=== PATIENT | female | born 1950 | race Hispanic/Latino ===

== ENCOUNTER 2022-05-03 17:35 | Inpatient (IN) | payer MEDICARE, SELFPAY ==
[2022-05-03 18:12] LABS: #Lymphocytes 1.2 thou/uL (1.20-3.40); #Monocytes 0.1 thou/uL (0.11-0.59); #Neutrophils 5.6 thou/uL (1.40-6.50); %Basophils 0.3 % (0.0-1.0); %Eosinophils 0.3 % (0.0-10.0); %Lymphocytes 17.6 % (21.0-51.0); %Monocytes 2.1 % (0.0-10.0); %Neutrophils 79.8 % (42.0-75.0); Hemoglobin 10.2 g/dL (12.0-16.0); Mean Corpuscular Hemoglobin 34.2 pg (27.0-31.0); Mean Platelet Volume 7.5 fL (7.4-10.4); Platelet Count 245 10x3/uL (130-400); RBC Distribution Width 11.7 % (11.5-14.5); Red Blood Cell (RBC) Count 2.97 mill/uL (4.20-5.40)
[2022-05-03 18:31] LABS: ALT (SGPT) 94 U/L (8-55); AST (SGOT) 105 U/L (5-34); Albumin 3.9 g/dL (3.4-4.8); Alkaline Phosphatase 82 U/L (40-110); Anion Gap 19 mmol/L (10-20); BUN (Urea Nitrogen) 86 mg/dL (9.8-20.1); Bilirubin, Total 0.3 mg/dL (0.2-1.2); Calc. Creatinine Clearance 0 mL/min (70-130); Calcium 8.8 mg/dL (7.8-10.44); Carbon Dioxide 15 mmol/L (23-31); Chloride 99 mmol/L (98-107); Estimated GFR 9; Globulin 2.9 g/dL (2.4-3.5); Glucose 256 mg/dL (80-115); Protein, Total 6.8 g/dL (5.8-8.1); Sodium 126 mmol/L (136-145)
[2022-05-03 18:36] LABS: Potassium 7.1 mmol/L (3.5-5.1)
[2022-05-03] MEDS ORDERED: Calcium Chloride 1 GM/10 ML Abboject SYRINGE ONE ×2 (20:36→20:38)
[2022-05-03] MEDS ORDERED: Insulin Regular 300 UNITS/3 ML VIAL ONE (20:36)
[2022-05-03] MEDS ORDERED: Dextrose 50% Abboject 50 ML SYRINGE ONE (20:36)
[2022-05-03] MEDS ORDERED: Sodium Bicarb 50 MEQ/50 ML VIAL ONE ×2 (20:36→20:37)
[2022-05-03] MEDS ORDERED: Ondansetron PF 4 MG/2 ML Vial IVP PRN (21:08)
[2022-05-03] MEDS ORDERED: Dextrose 50% Abboject 50 ML SYRINGE SLOW IVP PRN (21:10)
[2022-05-03] MEDS ORDERED: Dextrose 5% in Water 1,000 ML IV PRN (21:10)
[2022-05-03 21:59] LABS: Magnesium 2.1 mg/dL (1.6-2.6)
[2022-05-03] MEDS ORDERED: Sodium Bicarbonate 150 MEQ in Dextrose 5% in Water 1,000 ML IV SCH (22:00)
[2022-05-03 22:43] LABS: Bacteria/HPF 4+ HPF (None Seen); Bilirubin Negative (Negative); Blood, Urine Trace (Negative); Clarity Turbid (Clear); Glucose, Urine (Dipstick) 30 mg/dL (Negative); Ketone, Urine Negative (Negative); Leukocyte 500 Leu/uL (Negative); Nitrite Negative (Negative); Protein, Urine (Dipstick) 100 mg/dL (Neg-Trace); RBC/HPF 0-3 HPF (0-3); Renal Epithelial 0-3 HPF (None Seen); Specific Gravity, Urine 1.019 (1.002-1.036); WBC/HPF Greater than 50 HPF (0-3)
[2022-05-03 23:14] LABS: SARS-CoV-2 NAA Rapid Test Not Detected (NotDetected)
[2022-05-04 00:22] LABS: HBSAB Concentration Less than 8.00 mIU/mL; HBSAg Index 0.25 S/CO (0-0.99); Hep B Core Total Ab Non-Reactive (NonReactive); Hep B Core Total Index 0.06 S/CO (0-0.79); Hep B Surf AB Non-Reactive (NonReactive); Hep B Surf Ag Non-Reactive S/CO (NonReactive); Hep C IgG Ab Non-Reactive (NonReactive); Hep C Index 0.12 S/CO (0-0.79)
[2022-05-04 04:18] LABS: #Lymphocytes 2.2 thou/uL (1.20-3.40); #Monocytes 0.4 thou/uL (0.11-0.59); #Neutrophils 4.3 thou/uL (1.40-6.50); %Basophils 0.3 % (0.0-1.0); %Eosinophils 0.6 % (0.0-10.0); %Lymphocytes 31.6 % (21.0-51.0); %Monocytes 5.5 % (0.0-10.0); Hemoglobin 10.4 g/dL (12.0-16.0); Mean Corpuscular HGB CONC 35.1 g/dL (32.0-36.0); Mean Corpuscular Volume 99.9 fl (78.0-98.0); Mean Platelet Volume 7.9 fL (7.4-10.4); Platelet Count 237 10x3/uL (130-400); RBC Distribution Width 11.8 % (11.5-14.5); Red Blood Cell (RBC) Count 2.98 mill/uL (4.20-5.40)
[2022-05-04 04:23] LABS: Hemoglobin A1c 6.6 % (4.0-6.0)
[2022-05-04 04:39] LABS: Anion Gap 15 mmol/L (10-20); BUN (Urea Nitrogen) 39 mg/dL (9.8-20.1); Calc. Creatinine Clearance 0 mL/min (70-130); Calcium 9.1 mg/dL (7.8-10.44); Carbon Dioxide 23 mmol/L (23-31); Chloride 98 mmol/L (98-107); Estimated GFR 18; Glucose 129 mg/dL (80-115); Magnesium 2.2 mg/dL (1.6-2.6); Potassium 4.1 mmol/L (3.5-5.1); Sodium 132 mmol/L (136-145)
[2022-05-04 06:59] VITALS: BMI 32.5
[2022-05-04] MEDS ORDERED: cefTRIAXone\\ROCEPHIN 1 GM in Sodium Chloride 0.9% 100 ML IVPB SCH (08:00)
[2022-05-04 09:38] LABS: Bacteria/HPF 4+ HPF (None Seen); Bilirubin Negative (Negative); Blood, Urine Trace (Negative); CAUTI Indications for Culture Alt mental st,lethar; Clarity Turbid (Clear); Glucose, Urine (Dipstick) Normal (Negative); Ketone, Urine Negative (Negative); Leukocyte 500 Leu/uL (Negative); Nitrite Negative (Negative); Protein, Urine (Dipstick) 30 mg/dL (Neg-Trace); Specific Gravity, Urine 1.006 (1.002-1.036); Squamous Epithelial 0-3 HPF (0-3); Urobilinogen Normal mg/dL (Less than 2); WBC/HPF Greater than 50 HPF (0-3); pH, Urine 7.5 (5.0-9.0)
[2022-05-04 09:43] LABS: Urine Culture Reflex Yes Yes
[2022-05-04] MEDS: Heparin 5,000 UNITS/ML VIAL SC SCH ×2 (09:50→21:58)
[2022-05-04 10:00] LABS: Creatinine, Urine 36.31 mg/dL (47-110)
[2022-05-04] MEDS: HumaLOG 300 UNITS/3 ML VIAL SC PRN ×2 (11:36→22:27)
[2022-05-04] MEDS: cefTRIAXone\\ROCEPHIN 1 GM in Sodium Chloride 0.9% 100 ML IVPB SCH (11:37)
[2022-05-04 14:51] LABS: ALT (SGPT) 76 U/L (8-55); AST (SGOT) 57 U/L (5-34); Albumin 3.6 g/dL (3.4-4.8); Alkaline Phosphatase 76 U/L (40-110); Bilirubin, Direct 0.2 mg/dL (0.1-0.3); Bilirubin, Total 0.4 mg/dL (0.2-1.2); Protein, Total 6.6 g/dL (5.8-8.1)
[2022-05-04] MEDS ORDERED: Labetalol HCl 100 MG TAB PO SCH ×2 (15:00→21:00)
[2022-05-04] MEDS ORDERED: Empagliflozin 10 MG TAB PO SCH (16:15)
[2022-05-04] MEDS ORDERED: Sodium Bicarbonate Tab 325 MG TAB PO SCH (16:15)
[2022-05-04] MEDS: Acetaminophen 325 MG TAB PO PRN (19:29)
[2022-05-04] MEDS: Sodium Bicarbonate Tab 325 MG TAB PO SCH (21:58)
[2022-05-05 05:33] LABS: #Eosinphils 0.2 thou/uL (0.0-0.7); #Lymphocytes 2.7 thou/uL (1.20-3.40); #Monocytes 0.4 thou/uL (0.11-0.59); #Neutrophils 2.4 thou/uL (1.40-6.50); %Basophils 0.6 % (0.0-1.0); %Lymphocytes 47.2 % (21.0-51.0); %Monocytes 7.4 % (0.0-10.0); %Neutrophils 41.8 % (42.0-75.0); Hemoglobin 9.4 g/dL (12.0-16.0); Mean Corpuscular HGB CONC 34.3 g/dL (32.0-36.0); Mean Platelet Volume 7.4 fL (7.4-10.4); Platelet Count 193 10x3/uL (130-400); RBC Distribution Width 12.1 % (11.5-14.5); Red Blood Cell (RBC) Count 2.67 mill/uL (4.20-5.40); White Blood Cell (WBC) Count 5.7 10x3/uL (4.8-10.8)
[2022-05-05 05:50] LABS: Phosphorus 5.3 mg/dL (2.3-4.7)
[2022-05-05 06:04] LABS: ALT (SGPT) 44 U/L (8-55); AST (SGOT) 21 U/L (5-34); Albumin 3.1 g/dL (3.4-4.8); Alkaline Phosphatase 64 U/L (40-110); Anion Gap 14 mmol/L (10-20); BUN (Urea Nitrogen) 50 mg/dL (9.8-20.1); Bilirubin, Total 0.2 mg/dL (0.2-1.2); Calc. Creatinine Clearance 18 mL/min (70-130); Calcium 8.3 mg/dL (7.8-10.44); Carbon Dioxide 28 mmol/L (23-31); Chloride 99 mmol/L (98-107); Estimated GFR 11; Globulin 2.7 g/dL (2.4-3.5); Glucose 136 mg/dL (80-115); Magnesium 1.9 mg/dL (1.6-2.6); Potassium 4.6 mmol/L (3.5-5.1); Protein, Total 5.8 g/dL (5.8-8.1); Sodium 136 mmol/L (136-145)
[2022-05-05] MEDS ORDERED: Ergocalciferol 1.25 MG(50,000 UNITS) CAP PO SCH (09:00)
[2022-05-05] MEDS: Sodium Bicarbonate Tab 325 MG TAB PO SCH ×3 (09:31→22:10)
[2022-05-05] MEDS: Calcitriol 0.25 MCG CAP PO SCH (09:31)
[2022-05-05] MEDS: Heparin 5,000 UNITS/ML VIAL SC SCH ×2 (09:31→22:10)
[2022-05-05] MEDS: cefTRIAXone\\ROCEPHIN 1 GM in Sodium Chloride 0.9% 100 ML IVPB SCH (13:30)
[2022-05-05] MEDS: Carvedilol 3.125 MG TAB PO SCH (15:55)
[2022-05-05] MEDS: HumaLOG 300 UNITS/3 ML VIAL SC PRN (22:11)
[2022-05-06 05:28] LABS: #Basophils 0.1 thou/uL (0.0-0.2); #Eosinphils 0.1 thou/uL (0.0-0.7); #Lymphocytes 1.9 thou/uL (1.20-3.40); #Monocytes 0.6 thou/uL (0.11-0.59); #Neutrophils 5.7 thou/uL (1.40-6.50); %Basophils 0.7 % (0.0-1.0); %Eosinophils 1.7 % (0.0-10.0); %Lymphocytes 22.2 % (21.0-51.0); %Neutrophils 68.4 % (42.0-75.0); Hemoglobin 10.2 g/dL (12.0-16.0); Mean Corpuscular HGB CONC 33.1 g/dL (32.0-36.0); Mean Corpuscular Hemoglobin 34.1 pg (27.0-31.0); Mean Platelet Volume 7.8 fL (7.4-10.4); Platelet Count 215 10x3/uL (130-400); RBC Distribution Width 12.1 % (11.5-14.5); White Blood Cell (WBC) Count 8.3 10x3/uL (4.8-10.8)
[2022-05-06 05:47] LABS: Iron 31 ug/dL (50-170); Iron Binding Capacity, Total 256 mcg/dL (265-497)
[2022-05-06 06:04] LABS: ALT (SGPT) 49 U/L (8-55); AST (SGOT) 33 U/L (5-34); Albumin 3.4 g/dL (3.4-4.8); Alkaline Phosphatase 77 U/L (40-110); Anion Gap 14 mmol/L (10-20); BUN (Urea Nitrogen) 49 mg/dL (9.8-20.1); Bilirubin, Total 0.3 mg/dL (0.2-1.2); Calc. Creatinine Clearance 22 mL/min (70-130); Calcium 8.9 mg/dL (7.8-10.44); Carbon Dioxide 26 mmol/L (23-31); Chloride 106 mmol/L (98-107); Estimated GFR 15; Globulin 2.9 g/dL (2.4-3.5); Glucose 158 mg/dL (80-115); Potassium 4.2 mmol/L (3.5-5.1); Protein, Total 6.3 g/dL (5.8-8.1); Sodium 142 mmol/L (136-145)
[2022-05-06] MEDS: glipiZIDE 5 MG TAB PO SCH (07:26)
[2022-05-06] MEDS ORDERED: Amlodipine 5 MG TAB PO SCH (09:00)
[2022-05-06] MEDS: Calcitriol 0.25 MCG CAP PO SCH (09:33)
[2022-05-06] MEDS: Heparin 5,000 UNITS/ML VIAL SC SCH ×2 (09:33→22:36)
[2022-05-06] MEDS: Sodium Bicarbonate Tab 325 MG TAB PO SCH ×3 (09:33→22:37)
[2022-05-06] MEDS: Carvedilol 3.125 MG TAB PO SCH ×2 (09:33→16:39)
[2022-05-06] MEDS: Iron, Sodium Ferric Gluconate 250 MG in Sodium Chloride 0.9% 250 ML 250 ML IVPB SCH (09:58)
[2022-05-06] MEDS: HumaLOG 300 UNITS/3 ML VIAL SC PRN (11:36)
[2022-05-06] MEDS: cefTRIAXone\\ROCEPHIN 1 GM in Sodium Chloride 0.9% 100 ML IVPB SCH (12:13)
[2022-05-06] MEDS: Ciprofloxacin 500 MG TAB PO SCH (22:50)
[2022-05-07 05:22] LABS: #Basophils 0.1 thou/uL (0.0-0.2); #Eosinphils 0.2 thou/uL (0.0-0.7); #Lymphocytes 2.3 thou/uL (1.20-3.40); #Monocytes 0.5 thou/uL (0.11-0.59); #Neutrophils 4.2 thou/uL (1.40-6.50); %Eosinophils 3.5 % (0.0-10.0); %Lymphocytes 31.4 % (21.0-51.0); %Monocytes 6.3 % (0.0-10.0); %Neutrophils 57.8 % (42.0-75.0); Hemoglobin 9.5 g/dL (12.0-16.0); Mean Corpuscular HGB CONC 34.1 g/dL (32.0-36.0); Mean Platelet Volume 7.8 fL (7.4-10.4); Platelet Count 196 10x3/uL (130-400); RBC Distribution Width 11.9 % (11.5-14.5); White Blood Cell (WBC) Count 7.2 10x3/uL (4.8-10.8)
[2022-05-07 05:51] LABS: ALT (SGPT) 88 U/L (8-55); AST (SGOT) 79 U/L (5-34); Albumin 3.4 g/dL (3.4-4.8); Alkaline Phosphatase 94 U/L (40-110); Anion Gap 15 mmol/L (10-20); BUN (Urea Nitrogen) 48 mg/dL (9.8-20.1); Bilirubin, Total 0.3 mg/dL (0.2-1.2); Calc. Creatinine Clearance 24 mL/min (70-130); Calcium 8.6 mg/dL (7.8-10.44); Carbon Dioxide 21 mmol/L (23-31); Chloride 103 mmol/L (98-107); Estimated GFR 16; Globulin 2.9 g/dL (2.4-3.5); Glucose 121 mg/dL (80-115); Magnesium 1.7 mg/dL (1.6-2.6); Potassium 4.1 mmol/L (3.5-5.1); Protein, Total 6.3 g/dL (5.8-8.1); Sodium 135 mmol/L (136-145)
[2022-05-07] MEDS ORDERED: Amlodipine 5 MG TAB PO SCH (08:36)
[2022-05-07] MEDS ORDERED: Epoetin (ESRD) 10,000 UNITS/ML VIAL SC SCH (08:45)
[2022-05-07] MEDS ORDERED: Magnesium 2 GM/50 ML(in water) 2 GM in Premix Bag 1 BAG IVPB SCH (09:15)
[2022-05-07] MEDS: Amlodipine 10 MG TAB PO SCH (10:42)
[2022-05-07] MEDS: Sodium Bicarbonate Tab 325 MG TAB PO SCH ×3 (10:42→21:23)
[2022-05-07] MEDS: Calcitriol 0.25 MCG CAP PO SCH (10:43)
[2022-05-07] MEDS: Heparin 5,000 UNITS/ML VIAL SC SCH ×2 (10:44→21:22)
[2022-05-07] MEDS: Carvedilol 3.125 MG TAB PO SCH ×2 (10:45→17:07)
[2022-05-07] MEDS: Iron, Sodium Ferric Gluconate 250 MG in Sodium Chloride 0.9% 250 ML 250 ML IVPB SCH (10:45)
[2022-05-07] MEDS: glipiZIDE 5 MG TAB PO SCH (10:54)
[2022-05-07] MEDS ORDERED: EPOETIN ALFA-EPBX (ESRD) 10,000 UNITS/ML VIAL SC SCH (12:00)
[2022-05-07] MEDS: HumaLOG 300 UNITS/3 ML VIAL SC PRN (12:08)
[2022-05-07] MEDS: Acetaminophen 325 MG TAB PO PRN (19:18)
[2022-05-07] MEDS: Ciprofloxacin 500 MG TAB PO SCH (21:22)
[2022-05-08 04:59] LABS: #Eosinphils 0.2 thou/uL (0.0-0.7); #Lymphocytes 2.6 thou/uL (1.20-3.40); #Monocytes 0.5 thou/uL (0.11-0.59); #Neutrophils 3.6 thou/uL (1.40-6.50); %Basophils 0.4 % (0.0-1.0); %Eosinophils 3.3 % (0.0-10.0); %Monocytes 7.6 % (0.0-10.0); %Neutrophils 51.7 % (42.0-75.0); Hemoglobin 9.2 g/dL (12.0-16.0); Mean Corpuscular HGB CONC 33.2 g/dL (32.0-36.0); Mean Corpuscular Hemoglobin 34.1 pg (27.0-31.0); Mean Platelet Volume 8.2 fL (7.4-10.4); Platelet Count 204 10x3/uL (130-400); RBC Distribution Width 11.9 % (11.5-14.5); Red Blood Cell (RBC) Count 2.71 mill/uL (4.20-5.40); White Blood Cell (WBC) Count 6.9 10x3/uL (4.8-10.8)
[2022-05-08 05:04] LABS: ALT (SGPT) 153 U/L (8-55); AST (SGOT) 168 U/L (5-34); Albumin 3.5 g/dL (3.4-4.8); Alkaline Phosphatase 122 U/L (40-110); Anion Gap 16 mmol/L (10-20); BUN (Urea Nitrogen) 50 mg/dL (9.8-20.1); Bilirubin, Total 0.2 mg/dL (0.2-1.2); Calc. Creatinine Clearance 23 mL/min (70-130); Carbon Dioxide 25 mmol/L (23-31); Chloride 103 mmol/L (98-107); Estimated GFR 15; Glucose 161 mg/dL (80-115); Magnesium 2.3 mg/dL (1.6-2.6); Potassium 4.4 mmol/L (3.5-5.1); Protein, Total 6.5 g/dL (5.8-8.1); Sodium 140 mmol/L (136-145)
[2022-05-08] MEDS: Sodium Bicarbonate Tab 325 MG TAB PO SCH ×3 (09:54→20:31)
[2022-05-08] MEDS: Carvedilol 3.125 MG TAB PO SCH ×2 (09:55→17:22)
[2022-05-08] MEDS: Calcitriol 0.25 MCG CAP PO SCH (09:55)
[2022-05-08] MEDS: glipiZIDE 5 MG TAB PO SCH (09:55)
[2022-05-08] MEDS: Heparin 5,000 UNITS/ML VIAL SC SCH ×2 (09:55→20:32)
[2022-05-08] MEDS: Amlodipine 10 MG TAB PO SCH (09:55)
[2022-05-08] MEDS: Iron, Sodium Ferric Gluconate 250 MG in Sodium Chloride 0.9% 250 ML 250 ML IVPB SCH (11:38)
[2022-05-08] MEDS: Ciprofloxacin 500 MG TAB PO SCH (20:31)
[2022-05-08] MEDS: HumaLOG 300 UNITS/3 ML VIAL SC PRN (20:32)
[2022-05-09 05:04] LABS: #Eosinphils 0.4 thou/uL (0.0-0.7); #Lymphocytes 2.6 thou/uL (1.20-3.40); #Monocytes 0.7 thou/uL (0.11-0.59); #Neutrophils 3.9 thou/uL (1.40-6.50); %Basophils 0.5 % (0.0-1.0); %Eosinophils 5.2 % (0.0-10.0); %Lymphocytes 33.6 % (21.0-51.0); %Monocytes 8.8 % (0.0-10.0); %Neutrophils 51.8 % (42.0-75.0); Hemoglobin 8.7 g/dL (12.0-16.0); Mean Corpuscular HGB CONC 34.7 g/dL (32.0-36.0); Mean Corpuscular Hemoglobin 35.3 pg (27.0-31.0); Mean Platelet Volume 7.9 fL (7.4-10.4); Platelet Count 203 10x3/uL (130-400); RBC Distribution Width 11.6 % (11.5-14.5); Red Blood Cell (RBC) Count 2.46 mill/uL (4.20-5.40); White Blood Cell (WBC) Count 7.6 10x3/uL (4.8-10.8)
[2022-05-09 05:19] LABS: INR-International Normal Ratio 0.9; Prothrombin Time 12.9 sec (12.0-14.7)
[2022-05-09 05:20] LABS: PTT 39.4 sec (22.9-36.1)
[2022-05-09 05:28] LABS: ALT (SGPT) 234 U/L (8-55); AST (SGOT) 197 U/L (5-34); Albumin 3.4 g/dL (3.4-4.8); Alkaline Phosphatase 164 U/L (40-110); Anion Gap 13 mmol/L (10-20); BUN (Urea Nitrogen) 59 mg/dL (9.8-20.1); Bilirubin, Total 0.2 mg/dL (0.2-1.2); Calc. Creatinine Clearance 22 mL/min (70-130); Calcium 8.9 mg/dL (7.8-10.44); Carbon Dioxide 23 mmol/L (23-31); Chloride 104 mmol/L (98-107); Estimated GFR 14; Globulin 3.2 g/dL (2.4-3.5); Glucose 197 mg/dL (80-115); Magnesium 2.2 mg/dL (1.6-2.6); Potassium 4.1 mmol/L (3.5-5.1); Protein, Total 6.6 g/dL (5.8-8.1); Sodium 136 mmol/L (136-145)
[2022-05-09] MEDS: HumaLOG 300 UNITS/3 ML VIAL SC PRN ×3 (06:17→20:47)
[2022-05-09] MEDS: Sodium Bicarbonate Tab 325 MG TAB PO SCH ×3 (09:00→20:47)
[2022-05-09] MEDS: Carvedilol 3.125 MG TAB PO SCH ×2 (09:00→16:17)
[2022-05-09] MEDS: Heparin 5,000 UNITS/ML VIAL SC SCH ×2 (09:00→20:47)
[2022-05-09] MEDS: Alogliptin 6.25 MG TAB PO SCH (09:00)
[2022-05-09] MEDS: Calcitriol 0.25 MCG CAP PO SCH (09:00)
[2022-05-09] MEDS: Amlodipine 10 MG TAB PO SCH (09:01)
[2022-05-09] MEDS: Iron, Sodium Ferric Gluconate 250 MG in Sodium Chloride 0.9% 250 ML 250 ML IVPB SCH (09:41)
[2022-05-09 15:59] LABS: ANA Symphony (Qualitative) Equivocal: See Note (Negative); ANA Symphony (Quantitative) 0.8 Ratio (< 0.7 Negative); EliA Vaculitis New Method **** NEW METHOD ****; Mitochondrial Ab 1.3 U/mL (<4 Negative); dsDNA IgG Antibody 0.9 IU/mL (<10 Negative)
[2022-05-10 05:14] LABS: #Basophils 0.1 thou/uL (0.0-0.2); #Eosinphils 0.5 thou/uL (0.0-0.7); #Monocytes 0.6 thou/uL (0.11-0.59); %Basophils 0.8 % (0.0-1.0); %Eosinophils 6.4 % (0.0-10.0); %Lymphocytes 36.1 % (21.0-51.0); %Monocytes 7.6 % (0.0-10.0); %Neutrophils 49.1 % (42.0-75.0); Hemoglobin 8.5 g/dL (12.0-16.0); Mean Corpuscular HGB CONC 34.2 g/dL (32.0-36.0); Mean Corpuscular Hemoglobin 35.3 pg (27.0-31.0); Mean Platelet Volume 8.1 fL (7.4-10.4); Platelet Count 215 10x3/uL (130-400); RBC Distribution Width 11.9 % (11.5-14.5); White Blood Cell (WBC) Count 8.2 10x3/uL (4.8-10.8)
[2022-05-10 05:30] LABS: ALT (SGPT) 192 U/L (8-55); AST (SGOT) 110 U/L (5-34); Albumin 3.2 g/dL (3.4-4.8); Alkaline Phosphatase 158 U/L (40-110); Anion Gap 18 mmol/L (10-20); BUN (Urea Nitrogen) 62 mg/dL (9.8-20.1); Bilirubin, Total 0.2 mg/dL (0.2-1.2); Calc. Creatinine Clearance 22 mL/min (70-130); Calcium 8.9 mg/dL (7.8-10.44); Carbon Dioxide 18 mmol/L (23-31); Chloride 104 mmol/L (98-107); Estimated GFR 15; Globulin 3.3 g/dL (2.4-3.5); Glucose 157 mg/dL (80-115); Magnesium 2.2 mg/dL (1.6-2.6); Potassium 4.4 mmol/L (3.5-5.1); Protein, Total 6.5 g/dL (5.8-8.1); Sodium 136 mmol/L (136-145)
[2022-05-10] MEDS: HumaLOG 300 UNITS/3 ML VIAL SC PRN ×2 (05:52→11:21)
[2022-05-10] MEDS: Calcitriol 0.25 MCG CAP PO SCH (08:55)
[2022-05-10] MEDS: Sodium Bicarbonate Tab 325 MG TAB PO SCH (08:55)
[2022-05-10] MEDS: Alogliptin 6.25 MG TAB PO SCH (08:55)
[2022-05-10] MEDS: Carvedilol 3.125 MG TAB PO SCH (08:55)
[2022-05-10] MEDS: Heparin 5,000 UNITS/ML VIAL SC SCH (08:55)
[2022-05-10] MEDS ORDERED: Amlodipine 5 MG TAB PO SCH (09:00)
[2022-05-10 11:43] VITALS: BP 109/53; TEMP 97.8
[2022-05-10 16:14] LABS: Alpha-1-Antitrypsin 181 mg/dL (101-187)
[2022-05-12 13:38] LABS: Smooth Muscle Total ABS 4 Units (0-19)
== END 2022-05-10 14:40 | disposition home or self-care (01) | DRG 683 ==
LOC: ERS 17:35 → ERHOLD 21:10 → 2NO 05-04 06:18
PROVIDERS: ADMIT Internal Medicine; ATTEND Family Medicine
PROC: 02HV33Z Insertion of Infusion Device into Superior Vena Cava, Percutaneous Approach (ICD-10-PCS; principal; 2022-05-03)
PROC: 5A1D70Z Performance of Urinary Filtration, Intermittent, Less than 6 Hours Per Day (ICD-10-PCS; 2022-05-03)
DX: N17.9 Acute kidney failure, unspecified (principal); E22.2 Syndrome of inappropriate secretion of antidiuretic hormone; E87.20 Acidosis, unspecified; I13.0 Hypertensive heart and chronic kidney disease with heart failure and stage 1 through stage 4 chronic kidney disease, or unspecified chronic kidney disease; I50.32 Chronic diastolic (congestive) heart failure; N39.0 Urinary tract infection, site not specified; E87.5 Hyperkalemia; Z20.822 Contact with and (suspected) exposure to COVID-19; I48.91 Unspecified atrial fibrillation; E11.22 Type 2 diabetes mellitus with diabetic chronic kidney disease; N18.9 Chronic kidney disease, unspecified; E78.5 Hyperlipidemia, unspecified; R00.1 Bradycardia, unspecified; D63.1 Anemia in chronic kidney disease; E55.9 Vitamin D deficiency, unspecified; Z87.442 Personal history of urinary calculi; N25.81 Secondary hyperparathyroidism of renal origin
CPT/HCPCS: 36415; 36416; 36556; 51701; 76700; 76856; 80048; 80053; 80076; 81001; 81003; 81015; 82103; 82306; 82390; 82550; 82570; 82728; 83036; 83516; 83540; 83550; 83735; 83930; 83935; 83970; 84100; 84156; 84300; 84484; 85025; 85610; 85730; 86015; 86038; 86225; 86704; 87040; 87077; 87086; 87186; 87811; 90935; 93005; 93306; 96374; 96375; G0257; J0696; J1644; J1815; J2916; J3475; J3490; J7050; J7070; J7999; Q5105; U0002

== ENCOUNTER 2022-10-16 17:19 | Inpatient (IN) | payer MEDICARE, SELFPAY ==
[2022-10-16 18:21] LABS: Hematocrit 29.2 % (36.0-47.0); Hemoglobin 9.5 g/dL (12.0-16.0); Mean Corpuscular HGB CONC 32.5 g/dL (32.0-36.0); Mean Corpuscular Hemoglobin 33.7 pg (27.0-31.0); Mean Corpuscular Volume 103.5 fl (78.0-98.0); Mean Platelet Volume 10.2 fL (7.4-10.4); Platelet Count 193 10x3/uL (130-400); Red Blood Cell (RBC) Count 2.82 mill/uL (4.20-5.40)
[2022-10-16 18:22] LABS: Delete Auto Diff?? YES; Manual Diff?? YES
[2022-10-16 18:43] LABS: ALT (SGPT) 201 U/L (8-55); AST (SGOT) 151 U/L (5-34); Albumin 3.8 g/dL (3.4-4.8); Alkaline Phosphatase 275 U/L (40-110); Anion Gap 21 mmol/L (10-20); BUN (Urea Nitrogen) 88 mg/dL (9.8-20.1); Bilirubin, Total 0.6 mg/dL (0.2-1.2); Calc. Creatinine Clearance 0 mL/min (70-130); Calcium 9.9 mg/dL (7.8-10.44); Carbon Dioxide 16 mmol/L (23-31); Chloride 104 mmol/L (98-107); Estimated GFR 11; Globulin 3.8 g/dL (2.4-3.5); Glucose 155 mg/dL (80-115); Potassium 4.9 mmol/L (3.5-5.1); Protein, Total 7.6 g/dL (5.8-8.1); Sodium 136 mmol/L (136-145)
[2022-10-16 18:47] LABS: Troponin I 0.066 ng/mL (< 0.028)
[2022-10-16 19:08] LABS: Band 17 % (5-11); Burr Cells SLIGHT = 2-5 cells HPF (0-1); CellaVision Operator ID LAB.KB; Lymphocytes 7 % (21-51); Macrocytosis SLIGHT = 6-15 cells HPF (0-5); Monocytes 2 % (0-10); Neutrophil 74 % (42-75); Platelet Adequacy Comment Platelets Normal; Polychromasia SLIGHT = 2-3 cells HPF (0-2); Total Cell Count 99
[2022-10-16] MEDS ORDERED: Cefepime 2 GM VIAL ONE (19:40)
[2022-10-16] MEDS ORDERED: Vancomycin 1 GM/200 ML (FROZEN) BAG ONE (19:40)
[2022-10-16] MEDS ORDERED: Ondansetron PF 4 MG/2 ML Vial ONE (20:06)
[2022-10-16] MEDS ORDERED: Morphine 4 MG/ML VIAL ONE (20:06)
[2022-10-16 22:22] LABS: Bacteria/HPF None Seen HPF (None Seen); Bilirubin Negative (Negative); Blood, Urine Negative (Negative); CAUTI Indications for Culture Fever or rigors; Clarity Turbid (Clear); Glucose, Urine (Dipstick) Normal (Negative); Ketone, Urine Negative (Negative); Leukocyte Negative Leu/uL (Negative); Nitrite Negative (Negative); Protein, Urine (Dipstick) 20 mg/dL (Neg-Trace); RBC/HPF 0-3 HPF (0-3); Specific Gravity, Urine 1.012 (1.002-1.036); Squamous Epithelial 0-3 HPF (0-3); Urobilinogen Normal mg/dL (Less than 2); WBC/HPF 0-3 HPF (0-3)
[2022-10-16 22:27] LABS: Urine Culture Reflex No No
[2022-10-16] MEDS ORDERED: Senokot S 8.6-50 MG TAB PO PRN (22:27)
[2022-10-16] MEDS ORDERED: Dextrose 50% Abboject 50 ML SYRINGE SLOW IVP PRN (23:03)
[2022-10-16] MEDS ORDERED: Dextrose 5% in Water 1,000 ML IV PRN (23:03)
[2022-10-16] MEDS ORDERED: Glucagon 1 MG/ML KIT IM PRN (23:03)
[2022-10-16] MEDS ORDERED: Acetaminophen 500 MG TAB ONE (23:15)
[2022-10-16 23:27] LABS: Lactic Acid 1.9 mmol/L (0.5-2.2)
[2022-10-16 23:42] LABS: Troponin I 0.056 ng/mL (< 0.028)
[2022-10-16 23:46] LABS: Hemoglobin A1c 5.9 % (4.0-6.0)
[2022-10-17 02:28] LABS: Troponin I 0.093 ng/mL (< 0.028)
[2022-10-17] MEDS ORDERED: Piperacillin/Tazobactam 3.375 GM in Sodium Chloride 0.9% 100 ML IVPB SCH (02:30)
[2022-10-17 04:03] LABS: Hematocrit 25.2 % (36.0-47.0); Hemoglobin 8.3 g/dL (12.0-16.0); Mean Corpuscular HGB CONC 32.9 g/dL (32.0-36.0); Mean Corpuscular Hemoglobin 33.7 pg (27.0-31.0); Mean Corpuscular Volume 102.4 fl (78.0-98.0); Mean Platelet Volume 10.6 fL (7.4-10.4); Platelet Count 158 10x3/uL (130-400); RBC Distribution Width 13.7 % (11.5-14.5); Red Blood Cell (RBC) Count 2.46 mill/uL (4.20-5.40); White Blood Cell (WBC) Count 18.6 10x3/uL (4.8-10.8)
[2022-10-17 04:14] LABS: Delete Auto Diff?? YES; Manual Diff?? YES
[2022-10-17 04:44] LABS: Band 14 % (5-11); CellaVision Operator ID LAB.CLH1; Lymphocytes 3 % (21-51); Macrocytosis SLIGHT = 6-15 cells HPF (0-5); Neutrophil 83 % (42-75); Platelet Adequacy Comment Platelets Normal; Polychromasia MODERATE = 3-4 cells HPF (0-2); Total Cell Count 99
[2022-10-17 05:24] LABS: ALT (SGPT) 261 U/L (8-55); AST (SGOT) 285 U/L (5-34); Albumin 3.1 g/dL (3.4-4.8); Alkaline Phosphatase 325 U/L (40-110); Anion Gap 16 mmol/L (10-20); BUN (Urea Nitrogen) 90 mg/dL (9.8-20.1); Bilirubin, Total 0.6 mg/dL (0.2-1.2); Calc. Creatinine Clearance 16 mL/min (70-130); Calcium 8.4 mg/dL (7.8-10.44); Carbon Dioxide 18 mmol/L (23-31); Chloride 106 mmol/L (98-107); Estimated GFR 11; Globulin 3.3 g/dL (2.4-3.5); Glucose 201 mg/dL (80-115); Potassium 4.6 mmol/L (3.5-5.1); Protein, Total 6.4 g/dL (5.8-8.1); Sodium 135 mmol/L (136-145)
[2022-10-17] MEDS: HumaLOG 300 UNITS/3 ML VIAL SC PRN ×4 (06:13→21:37)
[2022-10-17] MEDS ORDERED: Carvedilol 3.125 MG TAB PO SCH (08:00)
[2022-10-17 08:10] LABS: Creatinine, Urine 56.59 mg/dL (47-110)
[2022-10-17] MEDS: Famotidine 20 MG TAB PO SCH (08:44)
[2022-10-17] MEDS: Sodium Bicarbonate Tab 325 MG TAB PO SCH ×3 (08:44→21:36)
[2022-10-17] MEDS: Calcitriol 0.25 MCG CAP PO SCH (08:44)
[2022-10-17] MEDS: Alogliptin 6.25 MG TAB PO SCH (08:45)
[2022-10-17 08:57] LABS: Troponin I 0.091 ng/mL (< 0.028)
[2022-10-17] MEDS ORDERED: Amlodipine 5 MG TAB PO SCH (09:00)
[2022-10-17] MEDS ORDERED: Albumin 25% 25 GM/100 ML BOT IVPB SCH (09:04)
[2022-10-17] MEDS: Piperacillin/Tazobactam 3.375 GM in Sodium Chloride 0.9% 100 ML IVPB SCH ×2 (09:13→21:36)
[2022-10-17] MEDS ORDERED: Vancomycin Dose by Levels Sliding Scale (Wt 71-99) FS SCH (09:15)
[2022-10-17] MEDS ORDERED: Sodium Bicarbonate 150 MEQ in Dextrose 5% in Water 1,000 ML IV SCH (10:00)
[2022-10-17] MEDS: Sodium Bicarbonate 150 MEQ in Sterile Water 1,000 ML IV SCH ×2 (11:43→21:36)
[2022-10-17 13:10] LABS: Vancomycin, Random 11.8 ug/mL (See Comment)
[2022-10-17] MEDS ORDERED: Vancomycin HCl 500 MG in Sodium Chloride 0.9% 100 ML IV SCH (13:45)
[2022-10-17] MEDS: Acetaminophen 325 MG TAB PO PRN (22:50)
[2022-10-18] MEDS ORDERED: Morphine 2 MG/ML VIAL SLOW IVP SCH (01:00)
[2022-10-18] MEDS: HumaLOG 300 UNITS/3 ML VIAL SC PRN ×3 (06:10→19:41)
[2022-10-18 06:25] LABS: Hematocrit 23.5 % (36.0-47.0); Hemoglobin 7.7 g/dL (12.0-16.0); Mean Corpuscular HGB CONC 32.8 g/dL (32.0-36.0); Mean Corpuscular Hemoglobin 33.3 pg (27.0-31.0); Mean Corpuscular Volume 101.7 fl (78.0-98.0); Mean Platelet Volume 10.9 fL (7.4-10.4); Platelet Count 145 10x3/uL (130-400); RBC Distribution Width 13.7 % (11.5-14.5); Red Blood Cell (RBC) Count 2.31 mill/uL (4.20-5.40); White Blood Cell (WBC) Count 15.1 10x3/uL (4.8-10.8)
[2022-10-18 06:52] LABS: Manual Diff?? YES
[2022-10-18 06:53] LABS: Delete Auto Diff?? YES
[2022-10-18 06:55] LABS: ALT (SGPT) 384 U/L (8-55); AST (SGOT) 418 U/L (5-34); Albumin 3.1 g/dL (3.4-4.8); Alkaline Phosphatase 349 U/L (40-110); Anion Gap 19 mmol/L (10-20); BUN (Urea Nitrogen) 101 mg/dL (9.8-20.1); Bilirubin, Total 0.6 mg/dL (0.2-1.2); Calc. Creatinine Clearance 14 mL/min (70-130); Carbon Dioxide 24 mmol/L (23-31); Chloride 97 mmol/L (98-107); Estimated GFR 9; Glucose 198 mg/dL (80-115); Potassium 4.4 mmol/L (3.5-5.1); Protein, Total 6.1 g/dL (5.8-8.1); Sodium 136 mmol/L (136-145)
[2022-10-18 08:11] LABS: Band 12 % (5-11); CellaVision Operator ID LAB.GE; Lymphocytes 6 % (21-51); Macrocytosis SLIGHT = 6-15 cells HPF (0-5); Monocytes 1 % (0-10); Neutrophil 81 % (42-75); Platelet Adequacy Comment Platelets Normal; Polychromasia SLIGHT = 2-3 cells HPF (0-2); Total Cell Count 116
[2022-10-18] MEDS ORDERED: Albumin 25% 25 GM/100 ML BOT IVPB SCH (09:00)
[2022-10-18] MEDS: Sodium Bicarbonate Tab 325 MG TAB PO SCH ×3 (10:03→21:36)
[2022-10-18] MEDS: Calcitriol 0.25 MCG CAP PO SCH (10:03)
[2022-10-18] MEDS: Famotidine 20 MG TAB PO SCH (10:03)
[2022-10-18] MEDS: Alogliptin 6.25 MG TAB PO SCH (10:03)
[2022-10-18] MEDS: Piperacillin/Tazobactam 3.375 GM in Sodium Chloride 0.9% 100 ML IVPB SCH (10:04)
[2022-10-18] MEDS: Sodium Bicarbonate 150 MEQ in Sterile Water 1,000 ML IV SCH (10:04)
[2022-10-18] MEDS: Ciprofloxacin HCL/Dexameth Otic Drops 7.5 ml Bottle R EAR SCH ×2 (10:05→21:36)
[2022-10-18] MEDS: Octreotide Acetate 100 MCG/ML VIAL SC SCH ×2 (14:33→22:10)
[2022-10-18 16:18] LABS: Iron Binding Capacity, Total 203 mcg/dL (265-497)
[2022-10-18 16:19] LABS: Iron 35 ug/dL (50-170)
[2022-10-18] MEDS: Albumin 25% 25 GM/100 ML BOT IVPB SCH ×2 (16:49→21:50)
[2022-10-18 19:23] LABS: Strep pneumo Urine Ag NEGATIVE (NEGATIVE)
[2022-10-18] MEDS: cefTRIAXone\\ROCEPHIN 1 GM in Sodium Chloride 0.9% 100 ML IVPB SCH (21:35)
[2022-10-18] MEDS: Ondansetron ODT 4 MG TAB PO PRN (22:20)
[2022-10-18 23:15] LABS: HBCM Index 0.06 S/CO (0-0.79); HBSAg Index 0.38 S/CO (0-0.99); Hep A IgM AB Non-Reactive S/CO (NonReactive); Hep A IgM S/CO 0.25 S/CO (0-0.79); Hep B Surf Ag Non-Reactive S/CO (NonReactive); Hep C IgG Ab Non-Reactive S/CO (NonReactive); Hep C Index 0.07 S/CO (0-0.79); Hepatitis B Core IgM Abs Non-Reactive S/CO (NonReactive)
[2022-10-19] MEDS: Albumin 25% 25 GM/100 ML BOT IVPB SCH ×4 (03:42→23:43)
[2022-10-19] MEDS: HumaLOG 300 UNITS/3 ML VIAL SC PRN ×3 (05:32→21:21)
[2022-10-19] MEDS: Octreotide Acetate 100 MCG/ML VIAL SC SCH ×3 (05:33→21:22)
[2022-10-19] MEDS: Famotidine 20 MG TAB PO SCH (08:45)
[2022-10-19] MEDS: Alogliptin 6.25 MG TAB PO SCH (08:45)
[2022-10-19] MEDS: Calcitriol 0.25 MCG CAP PO SCH (08:45)
[2022-10-19] MEDS: Ciprofloxacin HCL/Dexameth Otic Drops 7.5 ml Bottle R EAR SCH ×2 (08:46→21:21)
[2022-10-19] MEDS: Sodium Bicarbonate Tab 325 MG TAB PO SCH ×3 (08:50→21:32)
[2022-10-19 13:34] LABS: #Monocytes 0.9 thou/uL (0.11-0.59); %Basophils 0.2 % (0.0-1.0); %Eosinophils 0.2 % (0.0-10.0); %Lymphocytes 14.2 % (21.0-51.0); %Monocytes 8.4 % (0.0-10.0); %Neutrophils 76.2 % (42.0-75.0); Hematocrit 25.9 % (36.0-47.0); Hemoglobin 8.7 g/dL (12.0-16.0); Mean Corpuscular HGB CONC 33.6 g/dL (32.0-36.0); Mean Corpuscular Hemoglobin 33.9 pg (27.0-31.0); Mean Corpuscular Volume 100.8 fl (78.0-98.0); Platelet Count 127 10x3/uL (130-400); RBC Distribution Width 13.6 % (11.5-14.5); Red Blood Cell (RBC) Count 2.57 mill/uL (4.20-5.40); White Blood Cell (WBC) Count 10.5 10x3/uL (4.8-10.8)
[2022-10-19 13:49] LABS: Albumin 4.7 g/dL (3.4-4.8); Anion Gap 23 mmol/L (10-20); BUN (Urea Nitrogen) 91 mg/dL (9.8-20.1); BUN/Creatinine Ratio 17.33; Calc. Creatinine Clearance 13 mL/min (70-130); Calcium 9.2 mg/dL (7.8-10.44); Carbon Dioxide 23 mmol/L (23-31); Chloride 96 mmol/L (98-107); Estimated GFR 8; Glucose 282 mg/dL (80-115); Potassium 4.4 mmol/L (3.5-5.1); Sodium 138 mmol/L (136-145)
[2022-10-19 15:56] LABS: ALT (SGPT) 192 U/L (8-55); AST (SGOT) 84 U/L (5-34); Albumin 4.5 g/dL (3.4-4.8); Alkaline Phosphatase 290 U/L (40-110); Bilirubin, Direct 0.4 mg/dL (0.1-0.3); Bilirubin, Total 0.7 mg/dL (0.2-1.2)
[2022-10-19 16:39] LABS: INR-International Normal Ratio 1.2; Prothrombin Time 15.2 sec (12.0-14.7)
[2022-10-19] MEDS: cefTRIAXone\\ROCEPHIN 1 GM in Sodium Chloride 0.9% 100 ML IVPB SCH (21:21)
[2022-10-20] MEDS: HumaLOG 300 UNITS/3 ML VIAL SC PRN ×4 (06:23→21:56)
[2022-10-20] MEDS: Octreotide Acetate 100 MCG/ML VIAL SC SCH ×3 (06:23→21:55)
[2022-10-20 06:44] LABS: #Monocytes 0.8 thou/uL (0.11-0.59); #Neutrophils 5.2 thou/uL (1.40-6.50); %Basophils 0.4 % (0.0-1.0); %Eosinophils 0.1 % (0.0-10.0); %Lymphocytes 18.4 % (21.0-51.0); %Monocytes 10.8 % (0.0-10.0); %Neutrophils 69.4 % (42.0-75.0); Hematocrit 21.1 % (36.0-47.0); Hemoglobin 6.8 g/dL (12.0-16.0); Mean Corpuscular HGB CONC 32.2 g/dL (32.0-36.0); Mean Corpuscular Hemoglobin 33.3 pg (27.0-31.0); Mean Corpuscular Volume 103.4 fl (78.0-98.0); Mean Platelet Volume 11.1 fL (7.4-10.4); Platelet Count 136 10x3/uL (130-400); RBC Distribution Width 13.7 % (11.5-14.5); Red Blood Cell (RBC) Count 2.04 mill/uL (4.20-5.40); White Blood Cell (WBC) Count 7.4 10x3/uL (4.8-10.8)
[2022-10-20 07:08] LABS: ALT (SGPT) 138 U/L (8-55); AST (SGOT) 58 U/L (5-34); Albumin 4.4 g/dL (3.4-4.8); Alkaline Phosphatase 239 U/L (40-110); Anion Gap 20 mmol/L (10-20); BUN (Urea Nitrogen) 92 mg/dL (9.8-20.1); Bilirubin, Total 0.6 mg/dL (0.2-1.2); Calc. Creatinine Clearance 14 mL/min (70-130); Calcium 8.5 mg/dL (7.8-10.44); Carbon Dioxide 24 mmol/L (23-31); Chloride 97 mmol/L (98-107); Estimated GFR 8; Globulin 2.9 g/dL (2.4-3.5); Glucose 293 mg/dL (80-115); Potassium 3.9 mmol/L (3.5-5.1); Protein, Total 7.3 g/dL (5.8-8.1); Sodium 137 mmol/L (136-145)
[2022-10-20] MEDS: Albumin 25% 25 GM/100 ML BOT IVPB SCH ×3 (08:36→21:55)
[2022-10-20] MEDS: Calcitriol 0.25 MCG CAP PO SCH (08:36)
[2022-10-20] MEDS: Midodrine HCl 5 MG TAB PO SCH ×4 (08:36→22:32)
[2022-10-20] MEDS: Sodium Bicarbonate Tab 325 MG TAB PO SCH ×4 (08:36→22:32)
[2022-10-20] MEDS: Alogliptin 6.25 MG TAB PO SCH (08:36)
[2022-10-20] MEDS: Famotidine 20 MG TAB PO SCH (08:37)
[2022-10-20] MEDS: Ciprofloxacin HCL/Dexameth Otic Drops 7.5 ml Bottle R EAR SCH ×2 (08:37→21:54)
[2022-10-20] MEDS ORDERED: Heparin 5,000 UNITS/ML VIAL SC SCH (09:00)
[2022-10-20] MEDS ORDERED: Iron, Sodium Ferric Gluconate 250 MG in Sodium Chloride 0.9% 250 ML 250 ML IVPB SCH (10:30)
[2022-10-20] MEDS: Ondansetron ODT 4 MG TAB PO PRN (11:02)
[2022-10-20] MEDS: Epoetin (ESRD) 10,000 UNITS/ML VIAL SC SCH (12:13)
[2022-10-20] MEDS ORDERED: Ondansetron PF 4 MG/2 ML Vial IVP PRN (13:15)
[2022-10-20] MEDS ORDERED: Pantoprazole 40 MG VIAL IVP SCH (14:15)
[2022-10-20] MEDS ORDERED: Promethazine 25 MG TAB PO PRN (15:11)
[2022-10-20] MEDS ORDERED: Promethazine HCl 12.5 MG in Sodium Chloride 0.9% 50 ML IVPB PRN (15:11)
[2022-10-20] MEDS ORDERED: Furosemide 100 MG/10 ML VIAL SLOW IVP SCH (15:30)
[2022-10-20 19:45] LABS: Actual Bicarbonate (HCO3a) 26.6 mEq/L (22-28); Base Excess (BEa) 2.6 mEq/L (-2.0 to +3.0); CO2 Tension 38.7 mmHg (35.0-45.0); Calcium, Ionized (arterial) 0.99 mmol/L (1.12-1.30); Carboxyhemoglobin (COHb) 0.3 gm% (0.0-3.0); Hematocrit-ABG 26 % (36.0-47.0); Hemoglobin (Hb) 8.9 g/dL (12.0-16.0); Potassium - ABG Lab 3.48 mmol/L (3.70-5.30); pH, Arterial 7.455 (7.35-7.45)
[2022-10-20 19:46] LABS: O2 Tension (PaO2), arterial 54.1 mmHg (> 70.0); Puncture Site LRA
[2022-10-20 19:47] LABS: ALV-art Gradient 610.525 mmHg (0-20)
[2022-10-20] MEDS: cefTRIAXone\\ROCEPHIN 1 GM in Sodium Chloride 0.9% 100 ML IVPB SCH (21:53)
[2022-10-20] MEDS: Pantoprazole 40 MG VIAL IVP SCH (21:54)
[2022-10-20] MEDS ORDERED: Ipratropium/Albuterol 3 ML NEB NEB PRN (22:21)
[2022-10-20] MEDS ORDERED: Fleet Saline Enema 133 ML BOT PR SCH (22:45)
[2022-10-21 00:06] LABS: Hematocrit 23.5 % (36.0-47.0); Hemoglobin 7.9 g/dL (12.0-16.0); Mean Corpuscular HGB CONC 33.6 g/dL (32.0-36.0); Mean Corpuscular Hemoglobin 33.5 pg (27.0-31.0); Mean Platelet Volume 10.5 fL (7.4-10.4); Platelet Count 129 10x3/uL (130-400); RBC Distribution Width 15.1 % (11.5-14.5); Red Blood Cell (RBC) Count 2.36 mill/uL (4.20-5.40); White Blood Cell (WBC) Count 6.3 10x3/uL (4.8-10.8)
[2022-10-21 00:24] LABS: Mean Corpuscular Volume 99.6 fl (78.0-98.0)
[2022-10-21 03:59] LABS: #Monocytes 0.8 thou/uL (0.11-0.59); #Neutrophils 4.6 thou/uL (1.40-6.50); %Basophils 0.4 % (0.0-1.0); %Eosinophils 0.4 % (0.0-10.0); %Lymphocytes 16.6 % (21.0-51.0); %Monocytes 12.2 % (0.0-10.0); %Neutrophils 68.8 % (42.0-75.0); Hematocrit 25.1 % (36.0-47.0); Hemoglobin 8.4 g/dL (12.0-16.0); Mean Corpuscular HGB CONC 33.5 g/dL (32.0-36.0); Mean Corpuscular Hemoglobin 32.9 pg (27.0-31.0); Mean Corpuscular Volume 98.4 fl (78.0-98.0); Platelet Count 139 10x3/uL (130-400); RBC Distribution Width 14.6 % (11.5-14.5); Red Blood Cell (RBC) Count 2.55 mill/uL (4.20-5.40); White Blood Cell (WBC) Count 6.7 10x3/uL (4.8-10.8)
[2022-10-21 04:56] LABS: Lactic Acid 0.8 mmol/L (0.5-2.2)
[2022-10-21 05:03] LABS: ALT (SGPT) 180 U/L (8-55); AST (SGOT) 159 U/L (5-34); Albumin 4.7 g/dL (3.4-4.8); Alkaline Phosphatase 259 U/L (40-110); Anion Gap 19 mmol/L (10-20); BUN (Urea Nitrogen) 99 mg/dL (9.8-20.1); Bilirubin, Total 0.7 mg/dL (0.2-1.2); Calc. Creatinine Clearance 14 mL/min (70-130); Carbon Dioxide 28 mmol/L (23-31); Chloride 97 mmol/L (98-107); Estimated GFR 9; Globulin 2.8 g/dL (2.4-3.5); Glucose 265 mg/dL (80-115); Potassium 3.2 mmol/L (3.5-5.1); Protein, Total 7.5 g/dL (5.8-8.1); Sodium 141 mmol/L (136-145)
[2022-10-21] MEDS: Albumin 25% 25 GM/100 ML BOT IVPB SCH (05:23)
[2022-10-21] MEDS: Octreotide Acetate 100 MCG/ML VIAL SC SCH (05:32)
[2022-10-21] MEDS: HumaLOG 300 UNITS/3 ML VIAL SC PRN ×4 (05:33→21:16)
[2022-10-21] MEDS ORDERED: Potassium Chloride 20 MEQ TAB PO SCH (08:00)
[2022-10-21] MEDS: Sodium Bicarbonate Tab 325 MG TAB PO SCH ×3 (08:53→20:49)
[2022-10-21] MEDS: Calcitriol 0.25 MCG CAP PO SCH (08:54)
[2022-10-21] MEDS: Midodrine HCl 5 MG TAB PO SCH (09:04)
[2022-10-21] MEDS ORDERED: Heparin 10,000 UNITS/ 10 ML VIAL ONE (09:11)
[2022-10-21] MEDS: Heparin 5,000 UNITS/ML VIAL SC SCH ×2 (09:12→20:49)
[2022-10-21 09:40] LABS: Troponin I 0.295 ng/mL (< 0.028)
[2022-10-21 10:41] LABS: HBSAB Concentration Less than 8.00 mIU/mL; HBSAg Index 0.34 S/CO (0-0.99); Hep B Core Total Ab Non-Reactive (NonReactive); Hep B Core Total Index 0.08 S/CO (0-0.79); Hep B Surf AB Non-Reactive (NonReactive); Hep B Surf Ag Non-Reactive S/CO (NonReactive); Hep C IgG Ab Non-Reactive S/CO (NonReactive); Hep C Index 0.05 S/CO (0-0.79)
[2022-10-21] MEDS: Ciprofloxacin HCL/Dexameth Otic Drops 7.5 ml Bottle R EAR SCH ×2 (11:06→20:48)
[2022-10-21] MEDS: Alogliptin 6.25 MG TAB PO SCH (11:59)
[2022-10-21] MEDS: Pantoprazole 40 MG VIAL IVP SCH ×2 (12:00→20:46)
[2022-10-21] MEDS ORDERED: hydrALAZINE 20 MG/ML VIAL SLOW IVP PRN (19:54)
[2022-10-21] MEDS: cefTRIAXone\\ROCEPHIN 1 GM in Sodium Chloride 0.9% 100 ML IVPB SCH (20:47)
[2022-10-22 05:16] LABS: #Eosinphils 0.1 thou/uL (0.0-0.7); #Monocytes 0.6 thou/uL (0.11-0.59); #Neutrophils 6.6 thou/uL (1.40-6.50); %Basophils 0.4 % (0.0-1.0); %Eosinophils 0.6 % (0.0-10.0); %Lymphocytes 12.2 % (21.0-51.0); %Monocytes 6.9 % (0.0-10.0); Hematocrit 26.4 % (36.0-47.0); Hemoglobin 8.7 g/dL (12.0-16.0); Mean Corpuscular Hemoglobin 33.1 pg (27.0-31.0); Mean Corpuscular Volume 100.4 fl (78.0-98.0); Platelet Count 162 10x3/uL (130-400); Red Blood Cell (RBC) Count 2.63 mill/uL (4.20-5.40); White Blood Cell (WBC) Count 8.4 10x3/uL (4.8-10.8)
[2022-10-22] MEDS: HumaLOG 300 UNITS/3 ML VIAL SC PRN ×4 (05:26→21:14)
[2022-10-22 05:42] LABS: ALT (SGPT) 166 U/L (8-55); AST (SGOT) 168 U/L (5-34); Albumin 4.3 g/dL (3.4-4.8); Alkaline Phosphatase 326 U/L (40-110); Anion Gap 17 mmol/L (10-20); BUN (Urea Nitrogen) 56 mg/dL (9.8-20.1); Calc. Creatinine Clearance 22 mL/min (70-130); Calcium 9.3 mg/dL (7.8-10.44); Carbon Dioxide 28 mmol/L (23-31); Chloride 99 mmol/L (98-107); Estimated GFR 14; Globulin 3.1 g/dL (2.4-3.5); Glucose 305 mg/dL (80-115); Potassium 3.2 mmol/L (3.5-5.1); Protein, Total 7.4 g/dL (5.8-8.1); Sodium 141 mmol/L (136-145)
[2022-10-22] MEDS ORDERED: Potassium Chloride 20 MEQ TAB PO SCH (08:00)
[2022-10-22] MEDS: Alogliptin 6.25 MG TAB PO SCH (08:38)
[2022-10-22] MEDS: Insulin Glargine 30 UNITS/0.3 ML VIAL SC SCH (08:39)
[2022-10-22] MEDS: Calcitriol 0.25 MCG CAP PO SCH (08:39)
[2022-10-22] MEDS: Heparin 5,000 UNITS/ML VIAL SC SCH ×2 (08:40→21:01)
[2022-10-22] MEDS ORDERED: Heparin 10,000 UNITS/ 10 ML VIAL ONE (08:41)
[2022-10-22] MEDS: Ciprofloxacin HCL/Dexameth Otic Drops 7.5 ml Bottle R EAR SCH ×2 (08:41→19:34)
[2022-10-22] MEDS: Pantoprazole 40 MG VIAL IVP SCH ×2 (08:42→21:01)
[2022-10-22] MEDS: cefTRIAXone\\ROCEPHIN 2 GM in Sodium Chloride 0.9% 100 ML IVPB SCH (21:01)
[2022-10-23] MEDS: HumaLOG 300 UNITS/3 ML VIAL SC PRN ×3 (06:42→18:26)
[2022-10-23 08:01] LABS: #Eosinphils 0.2 thou/uL (0.0-0.7); #Monocytes 0.5 thou/uL (0.11-0.59); #Neutrophils 7.2 thou/uL (1.40-6.50); %Basophils 0.4 % (0.0-1.0); %Eosinophils 1.9 % (0.0-10.0); %Lymphocytes 19.4 % (21.0-51.0); %Monocytes 5.1 % (0.0-10.0); %Neutrophils 72.5 % (42.0-75.0); Hematocrit 28.6 % (36.0-47.0); Hemoglobin 9.4 g/dL (12.0-16.0); Mean Corpuscular HGB CONC 32.9 g/dL (32.0-36.0); Mean Corpuscular Hemoglobin 32.9 pg (27.0-31.0); Platelet Count 182 10x3/uL (130-400); RBC Distribution Width 13.6 % (11.5-14.5); Red Blood Cell (RBC) Count 2.86 mill/uL (4.20-5.40); White Blood Cell (WBC) Count 9.9 10x3/uL (4.8-10.8)
[2022-10-23] MEDS: Heparin 5,000 UNITS/ML VIAL SC SCH ×2 (08:20→20:28)
[2022-10-23] MEDS: Alogliptin 6.25 MG TAB PO SCH (08:20)
[2022-10-23] MEDS: Ergocalciferol 1.25 MG(50,000 UNITS) CAP PO SCH (08:20)
[2022-10-23] MEDS: Insulin Glargine 30 UNITS/0.3 ML VIAL SC SCH (08:20)
[2022-10-23] MEDS: Calcitriol 0.25 MCG CAP PO SCH (08:20)
[2022-10-23] MEDS: Ciprofloxacin HCL/Dexameth Otic Drops 7.5 ml Bottle R EAR SCH (08:21)
[2022-10-23] MEDS: Pantoprazole 40 MG VIAL IVP SCH ×2 (08:21→20:27)
[2022-10-23 08:25] LABS: Albumin 4.1 g/dL (3.4-4.8); Anion Gap 16 mmol/L (10-20); BUN (Urea Nitrogen) 41 mg/dL (9.8-20.1); BUN/Creatinine Ratio 14.59; Calc. Creatinine Clearance 26 mL/min (70-130); Calcium 9.5 mg/dL (7.8-10.44); Carbon Dioxide 27 mmol/L (23-31); Chloride 99 mmol/L (98-107); Estimated GFR 18; Glucose 253 mg/dL (80-115); Phosphorus 3.4 mg/dL (2.3-4.7); Potassium 3.8 mmol/L (3.5-5.1); Sodium 138 mmol/L (136-145)
[2022-10-23] MEDS: Acetaminophen 325 MG TAB PO PRN ×2 (15:49→23:52)
[2022-10-23] MEDS: cefTRIAXone\\ROCEPHIN 2 GM in Sodium Chloride 0.9% 100 ML IVPB SCH (20:29)
[2022-10-24] MEDS: HumaLOG 300 UNITS/3 ML VIAL SC PRN ×3 (05:16→20:52)
[2022-10-24 05:51] LABS: Albumin 3.7 g/dL (3.4-4.8); Anion Gap 19 mmol/L (10-20); BUN (Urea Nitrogen) 63 mg/dL (9.8-20.1); BUN/Creatinine Ratio 18.75; Calc. Creatinine Clearance 21 mL/min (70-130); Calcium 9.2 mg/dL (7.8-10.44); Carbon Dioxide 23 mmol/L (23-31); Chloride 99 mmol/L (98-107); Estimated GFR 14; Glucose 209 mg/dL (80-115); Potassium 3.7 mmol/L (3.5-5.1); Sodium 137 mmol/L (136-145)
[2022-10-24] MEDS: Alogliptin 6.25 MG TAB PO SCH (08:50)
[2022-10-24] MEDS: Heparin 5,000 UNITS/ML VIAL SC SCH ×2 (08:50→20:45)
[2022-10-24] MEDS: Pantoprazole 40 MG VIAL IVP SCH ×2 (08:50→20:47)
[2022-10-24] MEDS: Insulin Glargine 30 UNITS/0.3 ML VIAL SC SCH (08:51)
[2022-10-24] MEDS: Calcitriol 0.25 MCG CAP PO SCH (12:46)
[2022-10-24] MEDS: cefTRIAXone\\ROCEPHIN 2 GM in Sodium Chloride 0.9% 100 ML IVPB SCH (20:46)
[2022-10-25] MEDS: Pantoprazole 40 MG VIAL IVP SCH ×2 (09:09→20:32)
[2022-10-25] MEDS: Calcitriol 0.25 MCG CAP PO SCH (09:10)
[2022-10-25] MEDS: Heparin 5,000 UNITS/ML VIAL SC SCH ×2 (09:10→20:32)
[2022-10-25] MEDS: Alogliptin 6.25 MG TAB PO SCH (09:10)
[2022-10-25] MEDS: Insulin Glargine 30 UNITS/0.3 ML VIAL SC SCH (09:10)
[2022-10-25] MEDS ORDERED: Bupivacaine PF 0.5% 30 ML VIAL ONE (11:56)
[2022-10-25] MEDS ORDERED: Heparin 10,000 UNITS/ 10 ML VIAL ONE (11:56)
[2022-10-25] MEDS ORDERED: EPINEPHrine 1 MG/ML AMP ONE (11:56)
[2022-10-25] MEDS ORDERED: Lidocaine 2% PF 5 ML VIAL ONE (11:56)
[2022-10-25] MEDS ORDERED: PHENYLEPHRINE-NS 100 MCG/ML 10 ML SYRINGE ONE (12:25)
[2022-10-25] MEDS ORDERED: Lidocaine 1% PF 5 ML VIAL ONE (12:25)
[2022-10-25] MEDS ORDERED: ePHEDrine Sulfate 50 MG/10 ML VIAL ONE (12:25)
[2022-10-25] MEDS ORDERED: PROPOFOL 200 MG/20 ML VIAL ONE (12:25)
[2022-10-25] MEDS ORDERED: Ondansetron HCl/PF 4 MG/2 ML Vial IVP PRN (13:15)
[2022-10-25] MEDS ORDERED: PACU-Morphine 4MG/ML VIAL SLOW IVP PRN (13:15)
[2022-10-25] MEDS ORDERED: Promethazine HCl 25 MG/ML VIAL IM PRN (13:15)
[2022-10-25] MEDS ORDERED: HYDROmorphone 2 MG/ML VIAL SLOW IVP PRN (13:15)
[2022-10-25] MEDS: HumaLOG 300 UNITS/3 ML VIAL SC PRN ×2 (18:03→20:32)
[2022-10-25] MEDS: cefTRIAXone\\ROCEPHIN 2 GM in Sodium Chloride 0.9% 100 ML IVPB SCH (20:31)
[2022-10-26] MEDS: HumaLOG 300 UNITS/3 ML VIAL SC PRN ×3 (05:27→20:04)
[2022-10-26] MEDS: Alogliptin 6.25 MG TAB PO SCH (08:53)
[2022-10-26] MEDS: Pantoprazole 40 MG VIAL IVP SCH ×2 (08:53→20:03)
[2022-10-26] MEDS: Insulin Glargine 30 UNITS/0.3 ML VIAL SC SCH (08:53)
[2022-10-26] MEDS: Heparin 5,000 UNITS/ML VIAL SC SCH ×2 (08:53→20:03)
[2022-10-26] MEDS: Calcitriol 0.25 MCG CAP PO SCH (08:53)
[2022-10-26 09:10] LABS: #Eosinphils 0.5 thou/uL (0.0-0.7); #Monocytes 0.6 thou/uL (0.11-0.59); #Neutrophils 6.1 thou/uL (1.40-6.50); %Basophils 0.3 % (0.0-1.0); %Eosinophils 5.3 % (0.0-10.0); %Lymphocytes 16.3 % (21.0-51.0); %Monocytes 7.4 % (0.0-10.0); %Neutrophils 70.4 % (42.0-75.0); Hematocrit 24.9 % (36.0-47.0); Hemoglobin 8.1 g/dL (12.0-16.0); Mean Corpuscular HGB CONC 32.5 g/dL (32.0-36.0); Mean Corpuscular Hemoglobin 33.3 pg (27.0-31.0); Mean Corpuscular Volume 102.5 fl (78.0-98.0); Platelet Count 256 10x3/uL (130-400); RBC Distribution Width 13.7 % (11.5-14.5); Red Blood Cell (RBC) Count 2.43 mill/uL (4.20-5.40); White Blood Cell (WBC) Count 8.7 10x3/uL (4.8-10.8)
[2022-10-26 09:30] LABS: Anion Gap 18 mmol/L (10-20); BUN (Urea Nitrogen) 78 mg/dL (9.8-20.1); Calc. Creatinine Clearance 18 mL/min (70-130); Carbon Dioxide 21 mmol/L (23-31); Chloride 101 mmol/L (98-107); Estimated GFR 13; Glucose 283 mg/dL (80-115); Potassium 3.9 mmol/L (3.5-5.1); Sodium 136 mmol/L (136-145)
[2022-10-26] MEDS ORDERED: Heparin 10,000 UNITS/ 10 ML VIAL ONE (12:32)
[2022-10-26] MEDS: Acetaminophen 325 MG TAB PO PRN ×2 (12:38→20:03)
[2022-10-26] MEDS: cefTRIAXone\\ROCEPHIN 2 GM in Sodium Chloride 0.9% 100 ML IVPB SCH (20:02)
[2022-10-27] MEDS: HumaLOG 300 UNITS/3 ML VIAL SC PRN ×4 (05:34→20:11)
[2022-10-27] MEDS: Insulin Glargine 30 UNITS/0.3 ML VIAL SC SCH (08:14)
[2022-10-27] MEDS: Heparin 5,000 UNITS/ML VIAL SC SCH ×2 (08:14→20:11)
[2022-10-27] MEDS: Calcitriol 0.25 MCG CAP PO SCH (08:14)
[2022-10-27] MEDS: Alogliptin 6.25 MG TAB PO SCH (08:14)
[2022-10-27] MEDS: Pantoprazole 40 MG VIAL IVP SCH ×2 (08:15→20:11)
[2022-10-27] MEDS: Acetaminophen 325 MG TAB PO PRN ×2 (10:25→20:11)
[2022-10-27] MEDS: Epoetin (ESRD) 10,000 UNITS/ML VIAL SC SCH (10:26)
[2022-10-27] MEDS: cefTRIAXone\\ROCEPHIN 2 GM in Sodium Chloride 0.9% 100 ML IVPB SCH (20:12)
[2022-10-28 04:10] LABS: #Eosinphils 0.3 thou/uL (0.0-0.7); #Monocytes 0.7 thou/uL (0.11-0.59); #Neutrophils 4.2 thou/uL (1.40-6.50); %Basophils 0.6 % (0.0-1.0); %Eosinophils 3.8 % (0.0-10.0); %Lymphocytes 25.5 % (21.0-51.0); %Monocytes 10.5 % (0.0-10.0); %Neutrophils 59.2 % (42.0-75.0); Hematocrit 21.8 % (36.0-47.0); Hemoglobin 7.1 g/dL (12.0-16.0); Mean Corpuscular HGB CONC 32.6 g/dL (32.0-36.0); Mean Corpuscular Hemoglobin 33.3 pg (27.0-31.0); Mean Corpuscular Volume 102.3 fl (78.0-98.0); Mean Platelet Volume 10.9 fL (7.4-10.4); Platelet Count 254 10x3/uL (130-400); RBC Distribution Width 13.4 % (11.5-14.5); Red Blood Cell (RBC) Count 2.13 mill/uL (4.20-5.40); White Blood Cell (WBC) Count 7.1 10x3/uL (4.8-10.8)
[2022-10-28 04:34] LABS: Anion Gap 17 mmol/L (10-20); BUN (Urea Nitrogen) 61 mg/dL (9.8-20.1); Calc. Creatinine Clearance 17 mL/min (70-130); Calcium 8.6 mg/dL (7.8-10.44); Carbon Dioxide 22 mmol/L (23-31); Chloride 96 mmol/L (98-107); Estimated GFR 12; Glucose 210 mg/dL (80-115); Potassium 3.2 mmol/L (3.5-5.1); Sodium 132 mmol/L (136-145)
[2022-10-28] MEDS: HumaLOG 300 UNITS/3 ML VIAL SC PRN ×2 (06:09→21:52)
[2022-10-28] MEDS ORDERED: Potassium Chloride 20 MEQ TAB PO SCH (07:45)
[2022-10-28] MEDS: Heparin 5,000 UNITS/ML VIAL SC SCH ×2 (08:36→21:42)
[2022-10-28] MEDS: Calcitriol 0.25 MCG CAP PO SCH (08:36)
[2022-10-28] MEDS: Alogliptin 6.25 MG TAB PO SCH (08:37)
[2022-10-28] MEDS: Insulin Glargine 30 UNITS/0.3 ML VIAL SC SCH (08:37)
[2022-10-28] MEDS: Pantoprazole 40 MG VIAL IVP SCH ×2 (08:37→21:42)
[2022-10-28] MEDS: Acetaminophen 325 MG TAB PO PRN (12:35)
[2022-10-28] MEDS: cefTRIAXone\\ROCEPHIN 2 GM in Sodium Chloride 0.9% 100 ML IVPB SCH (21:42)
[2022-10-29] MEDS: Alogliptin 6.25 MG TAB PO SCH (11:04)
[2022-10-29] MEDS: Heparin 5,000 UNITS/ML VIAL SC SCH ×2 (11:05→21:45)
[2022-10-29] MEDS: Calcitriol 0.25 MCG CAP PO SCH (11:05)
[2022-10-29] MEDS: Insulin Glargine 30 UNITS/0.3 ML VIAL SC SCH (11:05)
[2022-10-29] MEDS: Pantoprazole 40 MG VIAL IVP SCH ×2 (11:06→21:46)
[2022-10-29 13:23] LABS: Hematocrit 25.5 % (36.0-47.0); Hemoglobin 8.4 g/dL (12.0-16.0)
[2022-10-29 14:34] LABS: Albumin 3.8 g/dL (3.4-4.8); Anion Gap 14 mmol/L (10-20); BUN (Urea Nitrogen) 21 mg/dL (9.8-20.1); BUN/Creatinine Ratio 12.43; Calc. Creatinine Clearance 39 mL/min (70-130); Calcium 9.5 mg/dL (7.8-10.44); Carbon Dioxide 28 mmol/L (23-31); Chloride 95 mmol/L (98-107); Estimated GFR 32; Glucose 196 mg/dL (80-115); Phosphorus 2.7 mg/dL (2.3-4.7); Potassium 3.6 mmol/L (3.5-5.1); Sodium 133 mmol/L (136-145)
[2022-10-29] MEDS: Acetaminophen 325 MG TAB PO PRN (16:12)
[2022-10-29] MEDS ORDERED: Acetaminophen 650 MG/20.3 ML UDCUP PO SCH (16:15)
[2022-10-29] MEDS: cefTRIAXone\\ROCEPHIN 2 GM in Sodium Chloride 0.9% 100 ML IVPB SCH (21:45)
[2022-10-29] MEDS: HumaLOG 300 UNITS/3 ML VIAL SC PRN (21:51)
[2022-10-30] MEDS: HumaLOG 300 UNITS/3 ML VIAL SC PRN ×4 (06:56→20:45)
[2022-10-30] MEDS: Alogliptin 6.25 MG TAB PO SCH (09:47)
[2022-10-30] MEDS: Calcitriol 0.25 MCG CAP PO SCH (09:47)
[2022-10-30] MEDS: Ergocalciferol 1.25 MG(50,000 UNITS) CAP PO SCH (09:47)
[2022-10-30] MEDS: Heparin 5,000 UNITS/ML VIAL SC SCH ×2 (09:48→20:45)
[2022-10-30] MEDS: Pantoprazole 40 MG VIAL IVP SCH ×2 (09:48→20:44)
[2022-10-30] MEDS: Insulin Glargine 30 UNITS/0.3 ML VIAL SC SCH (09:48)
[2022-10-30] MEDS ORDERED: Acetaminophen 650 MG/20.3 ML UDCUP PO SCH (18:15)
[2022-10-30] MEDS: cefTRIAXone\\ROCEPHIN 2 GM in Sodium Chloride 0.9% 100 ML IVPB SCH (20:44)
[2022-10-31] MEDS: HumaLOG 300 UNITS/3 ML VIAL SC PRN ×3 (05:27→21:18)
[2022-10-31] MEDS ORDERED: Heparin 10,000 UNITS/ 10 ML VIAL ONE (09:26)
[2022-10-31 09:44] LABS: Albumin 3.8 g/dL (3.4-4.8); Anion Gap 18 mmol/L (10-20); BUN (Urea Nitrogen) 64 mg/dL (9.8-20.1); BUN/Creatinine Ratio 14.61; Calc. Creatinine Clearance 15 mL/min (70-130); Carbon Dioxide 24 mmol/L (23-31); Chloride 94 mmol/L (98-107); Estimated GFR 10; Glucose 184 mg/dL (80-115); Phosphorus 7.2 mg/dL (2.3-4.7); Potassium 3.8 mmol/L (3.5-5.1); Sodium 132 mmol/L (136-145)
[2022-10-31] MEDS: Heparin 5,000 UNITS/ML VIAL SC SCH ×2 (09:47→21:11)
[2022-10-31] MEDS: Pantoprazole 40 MG VIAL IVP SCH ×2 (09:47→21:12)
[2022-10-31] MEDS: Alogliptin 6.25 MG TAB PO SCH (14:11)
[2022-10-31] MEDS: Insulin Glargine 30 UNITS/0.3 ML VIAL SC SCH (14:11)
[2022-10-31] MEDS: Calcitriol 0.25 MCG CAP PO SCH (14:11)
[2022-10-31] MEDS: Epoetin (ESRD) 10,000 UNITS/ML VIAL SC SCH (14:11)
[2022-10-31] MEDS: cefTRIAXone\\ROCEPHIN 2 GM in Sodium Chloride 0.9% 100 ML IVPB SCH (21:13)
[2022-10-31] MEDS: Acetaminophen 325 MG TAB PO PRN (21:16)
[2022-11-01] MEDS: HumaLOG 300 UNITS/3 ML VIAL SC PRN ×3 (04:52→20:40)
[2022-11-01] MEDS: Acetaminophen 325 MG TAB PO PRN ×2 (05:05→20:39)
[2022-11-01 05:46] LABS: Albumin 3.4 g/dL (3.4-4.8); Anion Gap 16 mmol/L (10-20); BUN (Urea Nitrogen) 30 mg/dL (9.8-20.1); BUN/Creatinine Ratio 9.58; Calc. Creatinine Clearance 21 mL/min (70-130); Calcium 9.5 mg/dL (7.8-10.44); Carbon Dioxide 27 mmol/L (23-31); Chloride 96 mmol/L (98-107); Estimated GFR 15; Glucose 179 mg/dL (80-115); Phosphorus 4.8 mg/dL (2.3-4.7); Potassium 4.7 mmol/L (3.5-5.1); Sodium 134 mmol/L (136-145)
[2022-11-01] MEDS: Heparin 5,000 UNITS/ML VIAL SC SCH ×2 (08:59→20:33)
[2022-11-01] MEDS: Pantoprazole 40 MG VIAL IVP SCH ×2 (08:59→20:33)
[2022-11-01] MEDS: Alogliptin 6.25 MG TAB PO SCH (09:00)
[2022-11-01] MEDS: Calcitriol 0.25 MCG CAP PO SCH (09:00)
[2022-11-01] MEDS: Insulin Glargine 30 UNITS/0.3 ML VIAL SC SCH (09:00)
[2022-11-01 12:28] VITALS: BMI 33.5
[2022-11-01] MEDS: cefTRIAXone\\ROCEPHIN 2 GM in Sodium Chloride 0.9% 100 ML IVPB SCH (20:33)
[2022-11-02 04:44] LABS: #Basophils 0.1 thou/uL (0.0-0.2); #Eosinphils 0.3 thou/uL (0.0-0.7); #Monocytes 0.5 thou/uL (0.11-0.59); #Neutrophils 2.5 thou/uL (1.40-6.50); %Eosinophils 5.4 % (0.0-10.0); %Lymphocytes 32.7 % (21.0-51.0); %Monocytes 10.6 % (0.0-10.0); %Neutrophils 50.1 % (42.0-75.0); Hematocrit 24.2 % (36.0-47.0); Hemoglobin 7.7 g/dL (12.0-16.0); Mean Corpuscular HGB CONC 31.8 g/dL (32.0-36.0); Mean Corpuscular Hemoglobin 32.8 pg (27.0-31.0); Mean Platelet Volume 9.7 fL (7.4-10.4); Platelet Count 279 10x3/uL (130-400); RBC Distribution Width 13.3 % (11.5-14.5); Red Blood Cell (RBC) Count 2.35 mill/uL (4.20-5.40)
[2022-11-02 05:13] LABS: Albumin 3.3 g/dL (3.4-4.8); Anion Gap 16 mmol/L (10-20); BUN (Urea Nitrogen) 50 mg/dL (9.8-20.1); BUN/Creatinine Ratio 12.66; Calc. Creatinine Clearance 0 mL/min (70-130); Calcium 9.5 mg/dL (7.8-10.44); Carbon Dioxide 25 mmol/L (23-31); Chloride 96 mmol/L (98-107); Estimated GFR 12; Glucose 146 mg/dL (80-115); Phosphorus 6.7 mg/dL (2.3-4.7); Sodium 133 mmol/L (136-145)
[2022-11-02] MEDS: Insulin Glargine 30 UNITS/0.3 ML VIAL SC SCH (08:34)
[2022-11-02] MEDS: Alogliptin 6.25 MG TAB PO SCH (08:35)
[2022-11-02] MEDS: Calcitriol 0.25 MCG CAP PO SCH (08:35)
[2022-11-02] MEDS: Epoetin (ESRD) 10,000 UNITS/ML VIAL SC SCH (08:35)
[2022-11-02] MEDS: Heparin 5,000 UNITS/ML VIAL SC SCH ×2 (08:35→20:46)
[2022-11-02] MEDS: Sevelamer Carbonate 800 MG TAB PO SCH ×3 (08:35→17:54)
[2022-11-02] MEDS: Pantoprazole 40 MG VIAL IVP SCH ×2 (08:35→20:46)
[2022-11-02] MEDS: Acetaminophen 325 MG TAB PO PRN (17:54)
[2022-11-02] MEDS: HumaLOG 300 UNITS/3 ML VIAL SC PRN ×2 (17:57→21:17)
[2022-11-03] MEDS: HumaLOG 300 UNITS/3 ML VIAL SC PRN ×4 (05:12→20:45)
[2022-11-03 05:43] LABS: #Basophils 0.1 thou/uL (0.0-0.2); #Eosinphils 0.2 thou/uL (0.0-0.7); #Monocytes 0.6 thou/uL (0.11-0.59); #Neutrophils 3.1 thou/uL (1.40-6.50); %Basophils 0.9 % (0.0-1.0); %Eosinophils 3.9 % (0.0-10.0); %Lymphocytes 29.5 % (21.0-51.0); %Monocytes 10.7 % (0.0-10.0); %Neutrophils 54.5 % (42.0-75.0); Hematocrit 25.9 % (36.0-47.0); Hemoglobin 8.1 g/dL (12.0-16.0); Mean Corpuscular HGB CONC 31.3 g/dL (32.0-36.0); Mean Corpuscular Hemoglobin 32.1 pg (27.0-31.0); Mean Corpuscular Volume 102.8 fl (78.0-98.0); Mean Platelet Volume 10.1 fL (7.4-10.4); Platelet Count 290 10x3/uL (130-400); RBC Distribution Width 13.3 % (11.5-14.5); Red Blood Cell (RBC) Count 2.52 mill/uL (4.20-5.40); White Blood Cell (WBC) Count 5.6 10x3/uL (4.8-10.8)
[2022-11-03 06:00] LABS: Anion Gap 17 mmol/L (10-20); BUN (Urea Nitrogen) 39 mg/dL (9.8-20.1); Calc. Creatinine Clearance 17 mL/min (70-130); Calcium 8.9 mg/dL (7.8-10.44); Carbon Dioxide 25 mmol/L (23-31); Chloride 95 mmol/L (98-107); Estimated GFR 13; Glucose 187 mg/dL (80-115); Potassium 3.8 mmol/L (3.5-5.1); Sodium 133 mmol/L (136-145)
[2022-11-03] MEDS: Insulin Glargine 30 UNITS/0.3 ML VIAL SC SCH (08:22)
[2022-11-03] MEDS: Alogliptin 6.25 MG TAB PO SCH (08:22)
[2022-11-03] MEDS: Calcitriol 0.25 MCG CAP PO SCH (08:22)
[2022-11-03] MEDS: Sevelamer Carbonate 800 MG TAB PO SCH ×3 (08:22→16:52)
[2022-11-03] MEDS: Heparin 5,000 UNITS/ML VIAL SC SCH ×2 (08:22→20:41)
[2022-11-03] MEDS: Pantoprazole 40 MG VIAL IVP SCH (08:23)
[2022-11-03] MEDS: Acetaminophen 325 MG TAB PO PRN (20:47)
[2022-11-04] MEDS: HumaLOG 300 UNITS/3 ML VIAL SC PRN ×4 (05:37→22:10)
[2022-11-04 06:17] LABS: Anion Gap 17 mmol/L (10-20); BUN (Urea Nitrogen) 73 mg/dL (9.8-20.1); Calc. Creatinine Clearance 14 mL/min (70-130); Calcium 9.2 mg/dL (7.8-10.44); Carbon Dioxide 25 mmol/L (23-31); Chloride 94 mmol/L (98-107); Estimated GFR 10; Glucose 182 mg/dL (80-115); Potassium 4.1 mmol/L (3.5-5.1); Sodium 132 mmol/L (136-145)
[2022-11-04] MEDS: Alogliptin 6.25 MG TAB PO SCH (08:52)
[2022-11-04] MEDS: Heparin 5,000 UNITS/ML VIAL SC SCH ×2 (08:52→20:03)
[2022-11-04] MEDS: Aspirin 81 mg Enteric Coated Tablet PO SCH (08:52)
[2022-11-04] MEDS: Rosuvastatin 10 MG TAB PO SCH (08:52)
[2022-11-04] MEDS: Sevelamer Carbonate 800 MG TAB PO SCH ×3 (08:52→16:09)
[2022-11-04] MEDS: Calcitriol 0.25 MCG CAP PO SCH (08:52)
[2022-11-04] MEDS: Insulin Glargine 30 UNITS/0.3 ML VIAL SC SCH (08:53)
[2022-11-05] MEDS: HumaLOG 300 UNITS/3 ML VIAL SC PRN (06:13)
[2022-11-05] MEDS: Aspirin 81 mg Enteric Coated Tablet PO SCH (07:17)
[2022-11-05] MEDS: Alogliptin 6.25 MG TAB PO SCH (07:17)
[2022-11-05] MEDS: Epoetin (ESRD) 10,000 UNITS/ML VIAL SC SCH (07:17)
[2022-11-05] MEDS: Insulin Glargine 30 UNITS/0.3 ML VIAL SC SCH (07:17)
[2022-11-05] MEDS: Calcitriol 0.25 MCG CAP PO SCH (07:17)
[2022-11-05] MEDS: Rosuvastatin 10 MG TAB PO SCH (07:17)
[2022-11-05] MEDS: Heparin 5,000 UNITS/ML VIAL SC SCH (07:17)
[2022-11-05] MEDS: Sevelamer Carbonate 800 MG TAB PO SCH ×3 (07:17→18:06)
[2022-11-05 08:49] VITALS: BP 153/73; TEMP 97.8
[2022-11-05] MEDS ORDERED: Heparin 10,000 UNITS/ 10 ML VIAL ONE (09:19)
== END 2022-11-05 18:33 | disposition home or self-care (01) | DRG 871 ==
LOC: ERS 17:19 → 2NO 23:24 → T4-B 10-18 16:03 → IMCU/EMU 10-20 20:01 → T4-A 10-23 19:02
PROVIDERS: ADMIT Student in an Organized Health Care Education/Training Program; ATTEND Internal Medicine
PROC: 3E03329 Introduction of Other Anti-infective into Peripheral Vein, Percutaneous Approach (ICD-10-PCS; 2022-10-16)
PROC: 30233J1 Transfusion of Nonautologous Serum Albumin into Peripheral Vein, Percutaneous Approach (ICD-10-PCS; 2022-10-17)
PROC: 30233N1 Transfusion of Nonautologous Red Blood Cells into Peripheral Vein, Percutaneous Approach (ICD-10-PCS; 2022-10-20)
PROC: 4A133R1 Monitoring of Arterial Saturation, Peripheral, Percutaneous Approach (ICD-10-PCS; 2022-10-20)
PROC: 06HY33Z Insertion of Infusion Device into Lower Vein, Percutaneous Approach (ICD-10-PCS; 2022-10-21)
PROC: 5A0945A Assistance with Respiratory Ventilation, 24-96 Consecutive Hours, High Flow/Velocity Cannula (ICD-10-PCS; 2022-10-21)
PROC: 5A1D70Z Performance of Urinary Filtration, Intermittent, Less than 6 Hours Per Day (ICD-10-PCS; 2022-10-21)
PROC: 5A1D70Z Performance of Urinary Filtration, Intermittent, Less than 6 Hours Per Day (ICD-10-PCS; 2022-10-22)
PROC: 5A1D70Z Performance of Urinary Filtration, Intermittent, Less than 6 Hours Per Day (ICD-10-PCS; 2022-10-24)
PROC: 0JH63XZ Insertion of Tunneled Vascular Access Device into Chest Subcutaneous Tissue and Fascia, Percutaneous Approach (ICD-10-PCS; principal; 2022-10-25)
PROC: 02HV33Z Insertion of Infusion Device into Superior Vena Cava, Percutaneous Approach (ICD-10-PCS; 2022-10-25)
PROC: B518YZA Fluoroscopy of Superior Vena Cava using Other Contrast, Guidance (ICD-10-PCS; 2022-10-25)
PROC: 3E033XZ Introduction of Vasopressor into Peripheral Vein, Percutaneous Approach (ICD-10-PCS; 2022-10-25)
PROC: 5A1D70Z Performance of Urinary Filtration, Intermittent, Less than 6 Hours Per Day (ICD-10-PCS; 2022-10-26)
PROC: 5A1D70Z Performance of Urinary Filtration, Intermittent, Less than 6 Hours Per Day (ICD-10-PCS; 2022-10-29)
PROC: 5A1D70Z Performance of Urinary Filtration, Intermittent, Less than 6 Hours Per Day (ICD-10-PCS; 2022-10-31)
PROC: 5A1D70Z Performance of Urinary Filtration, Intermittent, Less than 6 Hours Per Day (ICD-10-PCS; 2022-11-02)
DX: A40.3 Sepsis due to Streptococcus pneumoniae (principal); G93.41 Metabolic encephalopathy; I21.A1 Myocardial infarction type 2; I50.33 Acute on chronic diastolic (congestive) heart failure; N17.0 Acute kidney failure with tubular necrosis; R65.20 Severe sepsis without septic shock; J80 Acute respiratory distress syndrome; N18.6 End stage renal disease; I13.0 Hypertensive heart and chronic kidney disease with heart failure and stage 1 through stage 4 chronic kidney disease, or unspecified chronic kidney disease; E87.21 Acute metabolic acidosis; E87.1 Hypo-osmolality and hyponatremia; E11.22 Type 2 diabetes mellitus with diabetic chronic kidney disease; I48.91 Unspecified atrial fibrillation; E78.5 Hyperlipidemia, unspecified; D63.1 Anemia in chronic kidney disease; K74.60 Unspecified cirrhosis of liver; H60.91 Unspecified otitis externa, right ear; E87.6 Hypokalemia; R53.81 Other malaise; K59.00 Constipation, unspecified; E66.01 Morbid (severe) obesity due to excess calories; N25.0 Renal osteodystrophy; Z68.33 Body mass index [BMI] 33.0-33.9, adult; Z98.890 Other specified postprocedural states; Z79.899 Other long term (current) drug therapy
CPT/HCPCS: 36415; 36416; 36430; 36600; 51701; 70450; 70480; 71045; 71046; 71250; 74018; 74176; 76705; 80048; 80053; 80069; 80074; 80202; 81001; 82140; 82306; 82550; 82570; 82607; 82728; 82805; 83036; 83540; 83550; 83605; 83735; 83880; 83970; 84156; 84300; 84484; 85014; 85018; 85025; 85610; 86704; 86850; 86900; 86901; 87040; 87077; 87086; 87149; 87186; 87449; 90935; 93005; 93306; 94760; 96365; 96366; 96367; 96375; A4217; C1751; C1752; C9113; G0257; J0171; J0360; J0692; J0696; J1642; J1644; J1815; J1940; J2001; J2270; J2272; J2354; J2405; J2543; J2704; J2916; J3370; J3370-JW; J3490; J7050; P9016; P9047; Q0162; Q4081; S0020

== ENCOUNTER 2023-02-19 13:44 | Emergency (ER) | payer MEDICARE ==
[2023-02-19 14:48] LABS: #Eosinphils 0.3 thou/uL (0.0-0.7); #Monocytes 0.5 thou/uL (0.11-0.59); #Neutrophils 3.7 thou/uL (1.40-6.50); %Basophils 0.3 % (0.0-1.0); %Eosinophils 4.3 % (0.0-10.0); %Lymphocytes 28.7 % (21.0-51.0); %Monocytes 7.2 % (0.0-10.0); %Neutrophils 59.2 % (42.0-75.0); Hemoglobin 9.8 g/dL (12.0-16.0); Mean Corpuscular HGB CONC 32.7 g/dL (32.0-36.0); Mean Corpuscular Hemoglobin 32.8 pg (27.0-31.0); Mean Corpuscular Volume 100.3 fl (78.0-98.0); Mean Platelet Volume 9.8 fL (7.4-10.4); Platelet Count 243 10x3/uL (130-400); RBC Distribution Width 12.8 % (11.5-14.5); Red Blood Cell (RBC) Count 2.99 mill/uL (4.20-5.40); White Blood Cell (WBC) Count 6.2 10x3/uL (4.8-10.8)
[2023-02-19 15:54] LABS: ALT (SGPT) 37 U/L (8-55); AST (SGOT) 22 U/L (5-34); Albumin 3.9 g/dL (3.4-4.8); Alkaline Phosphatase 129 U/L (40-110); Anion Gap 18 mmol/L (10-20); BUN (Urea Nitrogen) 70 mg/dL (9.8-20.1); Bilirubin, Total 0.2 mg/dL (0.2-1.2); Calc. Creatinine Clearance 0 mL/min (70-130); Calcium 9.2 mg/dL (7.8-10.44); Carbon Dioxide 21 mmol/L (23-31); Chloride 104 mmol/L (98-107); Estimated GFR 13; Globulin 3.7 g/dL (2.4-3.5); Glucose 355 mg/dL (80-115); Potassium 4.6 mmol/L (3.5-5.1); Protein, Total 7.6 g/dL (5.8-8.1); Sodium 138 mmol/L (136-145)
== END 2023-02-19 16:22 | disposition home or self-care (01) ==
LOC: ERS 13:44
DX: I12.9 Hypertensive chronic kidney disease with stage 1 through stage 4 chronic kidney disease, or unspecified chronic kidney disease (principal); E11.22 Type 2 diabetes mellitus with diabetic chronic kidney disease; N18.9 Chronic kidney disease, unspecified; Z79.84 Long term (current) use of oral hypoglycemic drugs; Z79.899 Other long term (current) drug therapy
CPT/HCPCS: 36415; 80053; 85025; 99284